=== PATIENT | female | born 1965 | race Caucasian/White ===

== ENCOUNTER 2020-09-12 11:40 | Emergency (ER) | payer OTHER, SELFPAY ==
[~2020-09-12] VITALS: Ht 152.4 cm; Wt 59.0 kg
[2020-09-12 11:41] VITALS: Ht 152.4 cm; Wt 59.0 kg
[2020-09-12 13:00] VITALS: BP 138/79
== END 2020-09-12 13:00 | disposition home or self-care (01) ==
LOC: ED 11:40
DX: J02.9 Acute pharyngitis, unspecified (principal); I10 Essential (primary) hypertension; E11.9 Type 2 diabetes mellitus without complications; E78.5 Hyperlipidemia, unspecified

== ENCOUNTER 2020-09-16 10:47 | Emergency (ER) | payer OTHER ==
[~2020-09-16] VITALS: Ht 154.9 cm; Wt 63.0 kg
[2020-09-16 10:57] VITALS: BP 169/84; Ht 154.9 cm; Wt 63.0 kg
[2020-09-16 12:43] LABS: CALCIUM 9.1 mg/dL (8.5-10.1); CARBON DIOXIDE 27.2 mmol/L (21-32); CHLORIDE SERUM 102 mmol/L (98-107); CREATININE SERUM 0.6 mg/dL (0.6-1.0); GFR1 > 60 mL/min; GLUCOSE SERUM 317 mg/dL (74-106); POTASSIUM SERUM 3.7 mmol/L (3.5-5.1); SODIUM SERUM 136 mmol/L (136-145)
[2020-09-16 13:18] LABS: BASOPHIL % 0.4 % (0.2-1.3); PLATELET COUNT 365 x10^3mcL (179-408); RED CELL DISTRIBUTION WIDTH 13.3 % (12.3-17.7)
== END 2020-09-16 14:00 | disposition home or self-care (01) ==
LOC: ED 10:47
PROVIDERS: Specialist
DX: J02.9 Acute pharyngitis, unspecified (principal); I10 Essential (primary) hypertension; E11.9 Type 2 diabetes mellitus without complications; E78.5 Hyperlipidemia, unspecified
CPT/HCPCS: Q9967